=== PATIENT | male | born 1940 | race Caucasian/White ===

== ENCOUNTER 2020-08-18 11:16 | Emergency (ER) | payer OTHER ==
[~2020-08-18] VITALS: Ht 175.3 cm; Wt 73.0 kg
[2020-08-18 11:30] VITALS: BP 124/47
[2020-08-18] MEDS ORDERED: LIDOCAINE HCL/PF 1% 10 MG/ML 5ML VIAL IJ ONE (11:45)
[2020-08-18] MEDS ORDERED: TETANUS, DIPHTHERIA, PERTUSSIS VAC/PF 0.5ML (>7YR OLD) IM ONE (11:45)
[2020-08-18] MEDS ORDERED: BACITRACIN ZINC OINT UDPKT TOP ONE (11:45)
[2020-08-18] MEDS ORDERED: LIDOCAINE 1%/EPI 1:100,000 10 ML VIAL IJ ONE (13:30)
[2020-08-18] MEDS ORDERED: LIDOCAINE HCL/EPINEPHRINE 1%-EPI 1:100,000 20 ML VIAL INFIL ONE (13:45)
== END 2020-08-18 15:08 | disposition home or self-care (01) ==
LOC: EDBD 11:51 → ER 11:51
DX: S01.111A Laceration without foreign body of right eyelid and periocular area, initial encounter (principal); W18.30XA Fall on same level, unspecified, initial encounter; Y93.01 Activity, walking, marching and hiking; Y92.89 Other specified places as the place of occurrence of the external cause; Y99.8 Other external cause status
CPT/HCPCS: 12014; 70450; 70486; 82962; 90715; 99285; J3490